=== PATIENT | male | born 1940 | race Caucasian/White ===

== ENCOUNTER → 2020-03-27 | Outpatient (CLI) | payer OTHER, BC | LOC: CAT 15:53 | PROVIDERS: ATTEND Internal Medicine | DX: J98.11 Atelectasis (principal); I70.0 Atherosclerosis of aorta; R19.5 Other fecal abnormalities; I25.10 Atherosclerotic heart disease of native coronary artery without angina pectoris; N28.89 Other specified disorders of kidney and ureter; R91.8 Other nonspecific abnormal finding of lung field ==

== ENCOUNTER → 2020-04-09 | Outpatient (CLI) | payer OTHER, BC ==
[~2020-04-09] VITALS: Ht 167.6 cm; Wt 70.8 kg
[~2020-04-09] MED LIST: CELEBREX 200 M200 M1 PO; COLACE100 MG PO; FLONASE 0.05%50 MCG NARES; OMEPRAZOLE10 MG PO; OXYBUTYNIN CHLO15 MG PO; PRESERVISION A1 EACH PO; PROAIR HFA8.5 GM INH; SIMVASTATIN40 MG PO; SPIRIVA18 MCG INH; SYMBICORT160 MCG/4. INH
--- NOTE | 2020-04-12 17:06 | PATH ---
[facility] [address] [place] [address] PATHOLOGY RPT PROCEDURE Name: CLARICE FOREMAN Room #: REG FREDERIC Saha.#: [id number] Admission: 04/09/20 Date of : 42 Discharge: Report #: [id number] Path Case #: [id number] Note [facility] Accession Number: [id number] TESTS RESULT FLAG UNITS REF RANGE LAB Clinician Provided Cytology Information No. of containers..01 Other (Miscellaneous) Source: RUL BAL DIAGNOSIS: 02 RUL BAL NEGATIVE FOR MALIGNANT EPITHELIAL CELLS. PULMONARY MACROPHAGES (DUST CELLS) ARE PRESENT. THIS INTERPRETATION INCLUDES EVALUATION OF A CELL BLOCK. REACTIVE BRONCHIAL EPITHELIAL CELLS AND INFLAMMATORY CELLS. Pathologist ICD10: 02 R91.8 Signed out by: 02 Pam Dietz MD, Pathologist NPI- [id number] Performed by: Isak Montes De Oca, Dieing Out Machine Operator ([facility]) Gross description: 01 10ML, RED, 1TP 1CB /LCS 04/11/2020 0709 Local FLAG LEGEND: L-Low Normal,H-High Normal,LL-Alert Low,HH-Alert High <-Panic Low,>-Panic High,A-Abnormal,AA-Critical Abnormal Performed at: [address] [place] [address] Cecil Crouch MD, [address] [address] Pam Dietz MD, Specimen Comment: A courtesy copy of this report has been sent to [phone] Specimen Comment: Report sent to DR RIBEIRO Specimen Comment: A duplicate report has been generated due to demographic updates. Performed at: [address], [place], [place] [id number] MD Cecil Crouch MD Phone: [phone]
--- NOTE | 2020-04-12 17:06 | PATH ---
[facility] [address] [place] [address] PATHOLOGY RPT PROCEDURE Name: CLARICE FOREMAN Room #: REG FREDERIC Saha.#: [id number] Admission: 04/09/20 Date of : 42 Discharge: Report #: [id number] Path Case #: [id number] Note [facility] Accession Number: [id number] TESTS RESULT FLAG UNITS REF RANGE LAB Clinician Provided Cytology Information No. of containers..01 Other (Miscellaneous) Source: RUL BRUSHING DIAGNOSIS: 02 RUL BRUSHING NEGATIVE FOR MALIGNANT EPITHELIAL CELLS. REACTIVE BRONCHIAL CELLS ARE PRESENT. THIS INTERPRETATION INCLUDES EVALUATION OF A CELL BLOCK. ACUTE AND CHRONIC INFLAMMATORY CELLS. Pathologist ICD10: 02 R91.8 Signed out by: 02 Pam Dietz MD, Pathologist NPI- [id number] Performed by: Isak Montes De Oca, Data Keyer ([facility]) Gross description: 01 20ML, COLORLESS, 1FX /LCS 04/11/2020 0706 Local FLAG LEGEND: L-Low Normal,H-High Normal,LL-Alert Low,HH-Alert High <-Panic Low,>-Panic High,A-Abnormal,AA-Critical Abnormal Performed at: [address] [place] [address] Cecil Crouch MD, [address] [address] Pam Dietz MD, Specimen Comment: A courtesy copy of this report has been sent to [phone] Specimen Comment: Report sent to DR RIBEIRO Specimen Comment: A duplicate report has been generated due to demographic updates. Performed at: [address], [place], [place] [id number] MD Cecil Crouch MD Phone: [phone]
--- NOTE | 2020-04-12 18:06 | PATH ---
[facility] [place] [address] PATHOLOGY RPT PROCEDURE Name: CLARICE FOREMAN Room #: REG FREDERIC M.R.#: [id number] Admission: 04/09/20 Date of : 42 Discharge: Report #: [id number] Path Case #: [id number] [facility] Accession Number: [id number] . 01 Material submitted: . PART A: lung - RUL TISSUE BIOPSY-GENCUT. Modifiers: right, upper PART B: lung - RUL TISSUE BIOPSY-FORCEPS. Modifiers: right, upper . 01 Clinical history: . LUNG MASS . 02 Diagnosis: A. Lung, right upper lobe tissue, GenCut biopsy: - Blood and fibrinopurulent material comprising 90% of the sample. - Reactive detached bronchial epithelial cells with no evidence of dysplasia or malignancy. . B. Lung right upper lobe tissue, foceps biopsy: - Necrotic fragments comprising 99% of the sample along with focal dystrophic calcification. - Detached reactive bronchial epithelial cells as well as scant inflammatory cells. - Negative for dysplasia or malignancy. (IUV:doug; 04/11/2020) QMS 04/11/2020 1257 Local . 02 Comment: AFB and GMS are ordered on block B1 and the results of these will be reported in an addendum to follow. (IUV:doug; 04/11/2020) . 02 Addendum: . This addendum is issued subsequent to reviewing properly controlled AFB and GMSF special stains performed on block B1. . 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 GMS fungal special stain shows non-specific background staining; however, no definitive fungal yeast elements. . These findings were conveyed to Dr. Armin Lundberg in the morning of . . Part B diagnosis is further refined as follows: B. Lung, right upper lobe tissue, forceps biopsy: - Necrotic fragments with focal dystrophic calcification and abundant mycobacteria distributed throughout. [address] [address] PATHOLOGY RPT PROCEDURE Name: KELLENCLARICE Room #: REG FREDERIC Barkley#: [id number] Admission: 04/09/20 Date of : 42 Discharge: Report #: [id number] Path Case #: [id number] - Negative for definitive fungal elements on GMS special stain. - Detached reactive bronchial epithelial cells as well as scant inflammatory cells. - Negative for dysplasia or malignancy. (IUV:pit 04/12/2020) . Professional services performed by [facility] at [facility], [address], [place] [address]. Technical services performed by [facility] at [address] [place] [address], [address], [place] [address]. LBQ/04/12/2020 Addendum Electronically Signed by Pam Dietz MD, Pathologist . 02 Electronically signed: . Pam Dietz MD, Pathologist NPI- [id number] . 01 Gross description: . A. The specimen is received in formalin, labeled "Parish, [place], RUL tissue biopsy-gencut" and consists of hemorrhagic material and avila tissue fragments measuring 2.0 x 0.6 x 0.2 cm which is entirely submitted in A1. . B. The specimen is received in formalin, labeled "Parish, [place], RUL tissue biopsy forceps" and consists of multiple fragments of avila tissue measuring 0.6 x 0.4 x 0.2 cm in aggregate which are entirely submitted in B1. (SDY; 04/10/2020) SYU/SYU 04/10/2020 1049 Local . 02 Pathologist provided ICD-10: J98.4, R91.8 . 02 CPT . 837724, 509880, 394261, 530917 Specimen Comment: A courtesy copy of this report has been sent to [phone] Specimen Comment: [phone] Specimen Comment: Report sent to / DR ORTIZ Performed at: [address], [place], [place] [id number] MD Cecil Crouch MD Phone: [phone] Performed at: 02 [facility] [address], [place], [place] [id number] MD Pam Dietz MD Phone: [phone]
== END | disposition home or self-care (01) ==
LOC: PUL 09:02
PROVIDERS: ATTEND Pediatrics
DX: R91.8 Other nonspecific abnormal finding of lung field (principal); J98.4 Other disorders of lung; J43.9 Emphysema, unspecified; E78.00 Pure hypercholesterolemia, unspecified; F17.210 Nicotine dependence, cigarettes, uncomplicated; K21.9 Gastro-esophageal reflux disease without esophagitis; Z85.118 Personal history of other malignant neoplasm of bronchus and lung; Z98.890 Other specified postprocedural states; Z79.899 Other long term (current) drug therapy; Z85.51 Personal history of malignant neoplasm of bladder; Z90.49 Acquired absence of other specified parts of digestive tract
CPT/HCPCS: 50010; 70005

== ENCOUNTER → 2020-05-15 | Outpatient (CLI) | payer OTHER, BC | LOC: RAD 11:53 | PROVIDERS: ATTEND Internal Medicine | DX: J44.9 Chronic obstructive pulmonary disease, unspecified (principal); J98.4 Other disorders of lung ==

== ENCOUNTER → 2020-06-26 | Outpatient (CLI) | payer OTHER, BC | LOC: RAD 13:48 | PROVIDERS: ATTEND Internal Medicine | DX: J43.9 Emphysema, unspecified (principal); J98.4 Other disorders of lung ==